=== PATIENT | female | born 1955 | race Asian ===

== ENCOUNTER 2016-12-21 17:53 | Emergency (ER) | payer OTHER ==
[~2016-12-21] VITALS: Ht 167.6 cm; Wt 74.4 kg
[~2016-12-21 17:53] MED LIST: BUT/APAP/CA2 PO; CLONIDINE0.2 MG PO; DILTIAZEM HCL PO; LABETALOL200 MG PO; MECL25TA84 PO; RYBIX ODT50 MG PO; TRAM50TA PO; VITAMIN D1000 UNIT PO
[2016-12-21 18:55] LABS: PLATELET COUNT 215 K/uL (152-353)
[2016-12-21 19:01] LABS: POTASSIUM 4.4 mmol/L (3.6-5.2)
[2016-12-21 21:37] VITALS: BP 100/67; TEMP 97.2
== END 2016-12-21 23:09 | disposition short-term general hospital (02) ==
LOC: ED 17:53
DX: R07.89 Other chest pain (principal); R06.09 Other forms of dyspnea; R94.31 Abnormal electrocardiogram [ECG] [EKG]; I20.0 Unstable angina; I48.91 Unspecified atrial fibrillation
CPT/HCPCS: 36415; 80053; 82550; 82553; 84484; 85027; 85730; 93005; 96374; 99285; J3490

== ENCOUNTER 2017-01-03 13:29 | Outpatient (CLI) | payer OTHER ==
[2017-01-03 14:01] LABS: POTASSIUM 4.8 mmol/L (3.6-5.2)
[2017-01-03 14:30] LABS: PLATELET COUNT 236 K/uL (152-353)
== END 2017-01-03 14:30 | disposition home or self-care (01) ==
LOC: LABW 13:29
PROVIDERS: Internal Medicine Nephrology
DX: I12.9 Hypertensive chronic kidney disease with stage 1 through stage 4 chronic kidney disease, or unspecified chronic kidney disease (principal); N18.3 Chronic kidney disease, stage 3 (moderate); E83.49 Other disorders of magnesium metabolism
CPT/HCPCS: 36415; 80053; 81000; 82306; 82570; 83735; 84100; 84155; 85027

== ENCOUNTER 2018-02-07 11:29 | Outpatient (CLI) | payer OTHER ==
[2018-02-07 13:00] LABS: PLATELET COUNT 317 K/uL (152-353)
[2018-02-07 13:35] LABS: POTASSIUM 4.8 mmol/L (3.6-5.2)
== END 2018-02-07 22:04 | disposition home or self-care (01) ==
LOC: LABW 11:29
PROVIDERS: Internal Medicine
DX: I10 Essential (primary) hypertension (principal); Z79.899 Other long term (current) drug therapy; Z51.81 Encounter for therapeutic drug level monitoring; R06.02 Shortness of breath
CPT/HCPCS: 36415; 80053; 80061; 81000; 84443; 84550; 85027; 87077; 87086; 87088; 87186

== ENCOUNTER 2018-08-08 11:52 | Inpatient (IN) | payer OTHER ==
[2018-08-08] VITALS (7 sets, daily range): BP systolic 83–141; BP diastolic 50–86; TEMP 97.7–98.3; Ht 167.6 cm; Wt 93.1 kg
[~2018-08-08] VITALS: Ht 167.6 cm; Wt 93.1 kg
[2018-08-08 13:33] LABS: PLATELET COUNT 242 K/uL (152-353)
[2018-08-08 15:05] LABS: POTASSIUM 5.4 mmol/L (3.6-5.2)
[2018-08-08] MEDS ORDERED: COZAAR25 MG PO (18:23)
[2018-08-08] MEDS ORDERED: TAZTIA XT120 MG PO (18:24)
[2018-08-08] MEDS ORDERED: ALLO100T22 PO (18:25)
[2018-08-08 23:39] LABS: POTASSIUM 4.1 mmol/L (3.6-5.2)
[2018-08-09] VITALS (24 sets, daily range): BP systolic 80–127; BP diastolic 51–77; TEMP 98–98.3
[2018-08-09 03:46] LABS: PLATELET COUNT 240 K/uL (152-353)
[2018-08-09 03:50] LABS: POTASSIUM 4.1 mmol/L (3.6-5.2)
[2018-08-10] VITALS (23 sets, daily range): BP systolic 100–152; BP diastolic 50–103; TEMP 98–98.6
[2018-08-10 07:47] LABS: PLATELET COUNT 199 K/uL (152-353)
[2018-08-10 08:18] LABS: POTASSIUM 4.1 mmol/L (3.6-5.2)
[2018-08-11] VITALS (14 sets, daily range): BP systolic 111–133; BP diastolic 70–90; TEMP 97.9–98.3
[2018-08-11 05:57] LABS: POTASSIUM 4.2 mmol/L (3.6-5.2)
[2018-08-12] VITALS (10 sets, daily range): BP systolic 108–133; BP diastolic 68–81; TEMP 98.1–98.4
[2018-08-12 06:20] LABS: PLATELET COUNT 180 K/uL (152-353)
[2018-08-12 06:28] LABS: POTASSIUM 4.2 mmol/L (3.6-5.2)
[2018-08-13 00:20] VITALS: BP 134/80; TEMP 97.9
[2018-08-13 04:00] VITALS: BP 150/96; TEMP 98.2
[2018-08-13 08:03] VITALS: BP 131/76; TEMP 98.1
== END 2018-08-13 10:35 | disposition home or self-care (01) | DRG 638 ==
LOC: MED/SURG 11:52 → ICU 19:16 → MED/SURG 08-12 10:20
PROVIDERS: Emergency Medicine; Family Medicine; ADMIT Internal Medicine
DX: E11.10 Type 2 diabetes mellitus with ketoacidosis without coma (principal); N17.9 Acute kidney failure, unspecified; N39.0 Urinary tract infection, site not specified; G40.802 Other epilepsy, not intractable, without status epilepticus; I69.354 Hemiplegia and hemiparesis following cerebral infarction affecting left non-dominant side; I48.91 Unspecified atrial fibrillation; E11.22 Type 2 diabetes mellitus with diabetic chronic kidney disease; I12.9 Hypertensive chronic kidney disease with stage 1 through stage 4 chronic kidney disease, or unspecified chronic kidney disease; N18.3 Chronic kidney disease, stage 3 (moderate); F12.10 Cannabis abuse, uncomplicated; B96.20 Unspecified Escherichia coli [E. coli] as the cause of diseases classified elsewhere
CPT/HCPCS: 36415; 36600; 80048; 80053; 80307; 81000; 81002; 82805; 82947; 83036; 83735; 84443; 85027; 87077; 87086; 87088; 87186; 99220; G0379; J1815

== ENCOUNTER 2019-03-17 14:16 | Outpatient (CLI) | payer OTHER ==
[~2019-03-17 14:16] MED LIST changes: +ALLO100T22 PO; +COZAAR25 MG PO; +TAZTIA XT120 MG PO
[2019-03-17 15:32] LABS: PLATELET COUNT 334 K/uL (152-353)
[2019-03-17 16:06] LABS: POTASSIUM 5.2 mmol/L (3.6-5.2)
== END 2019-03-17 23:59 ==
LOC: LAB 14:16
PROVIDERS: Physician Assistant
DX: I12.9 Hypertensive chronic kidney disease with stage 1 through stage 4 chronic kidney disease, or unspecified chronic kidney disease (principal); N18.2 Chronic kidney disease, stage 2 (mild); E11.9 Type 2 diabetes mellitus without complications
CPT/HCPCS: 80053; 83036; 83735; 84443; 85027

== ENCOUNTER 2019-11-11 11:55 | Emergency (ER) | payer OTHER ==
[~2019-11-11] VITALS: Ht 167.6 cm; Wt 84.4 kg
[2019-11-11 13:00] VITALS: BP 121/79; TEMP 97.3
== END 2019-11-11 13:00 | disposition home or self-care (01) ==
LOC: ED 11:55
DX: M10.9 Gout, unspecified (principal)
CPT/HCPCS: 96372; 99283; J1885; J2930

== ENCOUNTER 2020-01-07 07:54 | Outpatient (CLI) | payer OTHER ==
[~2020-01-07] VITALS: Ht 167.6 cm; Wt 86.2 kg
== END 2020-01-07 19:05 | disposition home or self-care (01) ==
LOC: NM 07:54
DX: I48.91 Unspecified atrial fibrillation (principal); I10 Essential (primary) hypertension; I49.5 Sick sinus syndrome; R00.2 Palpitations
CPT/HCPCS: A9500; J2785

== ENCOUNTER 2020-02-10 09:27 | Emergency (ER) | payer OTHER ==
[~2020-02-10] VITALS: Ht 167.6 cm; Wt 89.8 kg
[2020-02-10 09:36] VITALS: TEMP 97.8
[2020-02-10] MEDS ORDERED: TRESIBA FL100 UNIT/M SC (09:53)
[2020-02-10] MEDS ORDERED: PROAIR HFA INH (09:53)
[2020-02-10] MEDS ORDERED: XARELTO20 MG PO (09:54)
[2020-02-10 10:49] LABS: PLATELET COUNT 314 K/uL (152-353)
[2020-02-10 12:19] LABS: POTASSIUM 4.6 mmol/L (3.6-5.2); SODIUM 135 mmol/L (136-145)
[2020-02-10 13:00] VITALS: BP 141/91
== END 2020-02-10 13:00 | disposition home or self-care (01) ==
LOC: ED 09:27
PROVIDERS: Emergency Medicine
DX: M79.661 Pain in right lower leg (principal); K08.89 Other specified disorders of teeth and supporting structures
CPT/HCPCS: 80053; 84484; 85027; 85379; 93005; 99283

== ENCOUNTER 2020-02-13 09:43 | Emergency (ER) | payer OTHER ==
[~2020-02-13] VITALS: Ht 167.6 cm; Wt 89.8 kg
[~2020-02-13 09:43] MED LIST changes: +PROAIR HFA INH; +TRESIBA FL100 UNIT/M SC; +XARELTO20 MG PO
[2020-02-13 13:00] VITALS: BP 107/73; TEMP 98.5
== END 2020-02-13 13:00 | disposition home or self-care (01) ==
LOC: ED 09:43
DX: M10.9 Gout, unspecified (principal)
CPT/HCPCS: 99283

== ENCOUNTER 2020-05-03 09:21 | Emergency (ER) | payer OTHER ==
[~2020-05-03] VITALS: Ht 167.6 cm; Wt 89.8 kg
[2020-05-03 09:30] VITALS: BP 138/96; TEMP 98.5
[2020-05-03 10:40] LABS: PLATELET COUNT 293 K/uL (152-353)
[2020-05-03 10:49] LABS: POTASSIUM 4.7 mmol/L (3.6-5.2)
== END 2020-05-03 11:40 | disposition home or self-care (01) ==
LOC: ED 09:21
PROVIDERS: Family Medicine
DX: M10.9 Gout, unspecified (principal)
CPT/HCPCS: 80053; 84550; 85027; 96372; 99283; J1885

== ENCOUNTER 2020-12-20 10:34 | Outpatient (CLI) | payer OTHER ==
[2020-12-20 11:03] LABS: PLATELET COUNT 277 K/uL (152-353)
== END 2020-12-20 22:05 | disposition home or self-care (01) ==
LOC: LABW 10:34
PROVIDERS: ATTEND Internal Medicine
DX: Z00.00 Encounter for general adult medical examination without abnormal findings (principal); E11.9 Type 2 diabetes mellitus without complications; Z13.820 Encounter for screening for osteoporosis; E55.9 Vitamin D deficiency, unspecified; R82.998 Other abnormal findings in urine
CPT/HCPCS: 36415; 80053; 80061; 81000; 82043; 82306; 82570; 83036; 84439; 84443; 85027; 87077; 87086; 87088; 87186

== ENCOUNTER 2021-04-15 17:51 | Inpatient (IN) | payer OTHER ==
[~2021-04-15] VITALS: Ht 167.6 cm; Wt 95.7 kg
[2021-04-15 17:51] VITALS: BP 96/73; TEMP 97.9
[2021-04-15 18:39] LABS: PLATELET COUNT 207 K/uL (152-353)
[2021-04-15 18:47] LABS: POTASSIUM 5.2 mmol/L (3.6-5.2)
[2021-04-15 21:00] VITALS: BP 153/93
[2021-04-15 22:00] VITALS: BP 145/92
[2021-04-16] VITALS (8 sets, daily range): BP systolic 99–130; BP diastolic 67–80; TEMP 98.1–99.8; Ht 167.6 cm; Wt 95.7 kg
[2021-04-16 04:34] LABS: PLATELET COUNT 167 K/uL (152-353)
[2021-04-16 04:48] LABS: POTASSIUM 4.9 mmol/L (3.6-5.2)
[2021-04-16] MEDS ORDERED: COLCHICINE0.6 MG PO (07:02)
[2021-04-17 00:11] VITALS: BP 123/56; TEMP 100.9
[2021-04-17 04:00] VITALS: BP 129/91; TEMP 99.1
[2021-04-17 08:00] VITALS: BP 106/71; TEMP 97.7
[2021-04-17 09:28] LABS: PLATELET COUNT 194 K/uL (152-353)
[2021-04-17 09:43] LABS: POTASSIUM 6.3 mmol/L (3.6-5.2)
--- NOTE | 2021-04-17 09:43 | NUR ---
CRITICAL K+ 6.3 CALLED FROM LAB. NOTIFIED DR. CHAMBERS.
[2021-04-17 12:00] VITALS: BP 103/82; TEMP 98.1
[2021-04-17 15:29] LABS: POTASSIUM 6.2 mmol/L (3.6-5.2)
--- NOTE | 2021-04-17 15:32 | NUR ---
LAB CALLED WITH CRITICAL LAB, POTASSIUM IS 6.2. PHYSICIAN HAS BEEN NOTIFIED AND ORDERED FOR KAYEXALATE 60 ML ONE DOSE TO BE GIVEN.
[2021-04-17 16:00] VITALS: BP 114/61; TEMP 98.1
[2021-04-17 19:51] VITALS: BP 128/85; TEMP 97.7
[2021-04-18 00:06] VITALS: BP 119/90; TEMP 97.6
[2021-04-18 04:06] VITALS: BP 138/79; TEMP 97.7
[2021-04-18 05:36] LABS: PLATELET COUNT 230 K/uL (152-353)
[2021-04-18 05:49] LABS: POTASSIUM 3.9 mmol/L (3.6-5.2)
[2021-04-18 08:00] VITALS: BP 117/73; TEMP 97.5
[2021-04-18 12:00] VITALS: BP 123/85; TEMP 97.4
[2021-04-18] MEDS ORDERED: ASCO500T18 PO (14:07)
[2021-04-18] MEDS ORDERED: DEXAMETHASON4 MG PO (14:08)
[2021-04-18] MEDS ORDERED: AZIT250T3 PO (14:08)
--- NOTE | 2021-04-18 16:20 | NUR ---
DISCHARGE INSTRUCTIONS SIGNED AND GIVEN. IV D/C'd. Pt. EXIT VIA W/C.
== END 2021-04-18 16:20 | disposition home or self-care (01) | DRG 177 ==
LOC: ED 17:51 → MED/SURG 22:20 → UNDODEPER 04-17 23:00 → MED/SURG 04-18 16:20
PROVIDERS: ADMIT Emergency Medicine; ATTEND Internal Medicine Endocrinology, Diabetes & Metabolism
DX: U07.1 COVID-19 (principal); J12.82 Pneumonia due to coronavirus disease 2019; N17.8 Other acute kidney failure; Z86.73 Personal history of transient ischemic attack (TIA), and cerebral infarction without residual deficits; I25.10 Atherosclerotic heart disease of native coronary artery without angina pectoris; M25.551 Pain in right hip; I48.91 Unspecified atrial fibrillation; E11.22 Type 2 diabetes mellitus with diabetic chronic kidney disease; I12.9 Hypertensive chronic kidney disease with stage 1 through stage 4 chronic kidney disease, or unspecified chronic kidney disease; N18.30 Chronic kidney disease, stage 3 unspecified
CPT/HCPCS: 36415; 80048; 80053; 81000; 85027; 87635; 96365; 99284; J0456; J1100; J1815; J2270; J2405; U0003

== ENCOUNTER 2021-04-23 18:26 | Inpatient (IN) | payer OTHER ==
[2021-04-23] VITALS (9 sets, daily range): BP systolic 124–158; BP diastolic 84–114; TEMP 97–99.6
[~2021-04-23] VITALS: Ht 165.1 cm; Wt 101.7 kg
[~2021-04-23 18:26] MED LIST changes: +ASCO500T18 PO; +AZIT250T3 PO; +COLCHICINE0.6 MG PO; +DEXAMETHASON4 MG PO
[2021-04-23 19:04] LABS: POTASSIUM 5.8 mmol/L (3.6-5.2)
[2021-04-23 19:08] LABS: PLATELET COUNT 304 K/uL (152-353)
[2021-04-23 20:08] LABS: PARTIAL THROMBOPLASTIN TIME 22.2 SECONDS (24.5-33.6)
[2021-04-24] VITALS (19 sets, daily range): BP systolic 123–179; BP diastolic 87–125; TEMP 98.2–101; Ht 165.1 cm; Wt 101.7 kg
[2021-04-24 03:56] LABS: POTASSIUM 4.8 mmol/L (3.6-5.2)
[2021-04-24 07:09] LABS: PLATELET COUNT 264 K/uL (152-353)
[2021-04-24 07:27] LABS: POTASSIUM 4.9 mmol/L (3.6-5.2)
[2021-04-24 11:43] LABS: POTASSIUM 5.4 mmol/L (3.6-5.2)
[2021-04-24 15:15] LABS: POTASSIUM 4.4 mmol/L (3.6-5.2)
[2021-04-24 21:38] LABS: POTASSIUM 5.4 mmol/L (3.6-5.2)
[2021-04-25] VITALS (11 sets, daily range): BP systolic 122–146; BP diastolic 82–94; TEMP 98.3–99.9
[2021-04-25 07:42] LABS: POTASSIUM 4.9 mmol/L (3.6-5.2)
[2021-04-25 08:11] LABS: PLATELET COUNT 192 K/uL (152-353)
[2021-04-25 14:55] LABS: POTASSIUM 4.8 mmol/L (3.6-5.2)
[2021-04-26] VITALS (12 sets, daily range): BP systolic 100–137; BP diastolic 53–88; TEMP 97.6–98.6
[2021-04-26 07:24] LABS: PLATELET COUNT 210 K/uL (152-353)
[2021-04-26 07:42] LABS: POTASSIUM 4.6 mmol/L (3.6-5.2)
[2021-04-27] VITALS (11 sets, daily range): BP systolic 109–163; BP diastolic 73–95; TEMP 98.1–100
[2021-04-27 07:45] LABS: POTASSIUM 5.2 mmol/L (3.6-5.2)
[2021-04-27 08:25] LABS: PLATELET COUNT 47 K/uL (152-353)
[2021-04-28] VITALS: BP 142/88
[2021-04-28 03:00] VITALS: BP 151/105
[2021-04-28 05:15] LABS: POTASSIUM 4.7 mmol/L (3.6-5.2)
[2021-04-28 07:20] LABS: PLATELET COUNT 196 K/uL (152-353)
[2021-04-28 20:00] VITALS: BP 136/90; TEMP 98
[2021-04-29 00:02] VITALS: BP 137/90; TEMP 98.1
[2021-04-29 20:00] VITALS: BP 126/81; TEMP 97.8
[2021-04-30 00:18] VITALS: BP 126/84; TEMP 98.1
[2021-04-30 04:26] VITALS: BP 132/76; TEMP 97.3
[2021-04-30 08:00] VITALS: BP 158/76; TEMP 97.6
[2021-04-30 12:00] VITALS: BP 107/65; TEMP 97.8
[2021-04-30 16:00] VITALS: BP 102/67; TEMP 97.8
[2021-04-30 20:00] VITALS: BP 113/67; TEMP 98.2
[2021-05-01] VITALS: BP 111/73; TEMP 98.6
[2021-05-01 04:00] VITALS: BP 137/84; TEMP 98.3
[2021-05-01 08:00] VITALS: BP 144/79; TEMP 98.8
[2021-05-01 12:00] VITALS: BP 118/58; TEMP 97.3
[2021-05-01 16:00] VITALS: BP 116/53; TEMP 97.8
[2021-05-01 20:14] VITALS: BP 115/61; TEMP 98.5
[2021-05-02] VITALS: BP 136/78; TEMP 98.1
[2021-05-02 04:00] VITALS: BP 120/58; TEMP 98.5
[2021-05-02 08:00] VITALS: BP 146/82; TEMP 98
[2021-05-02 12:00] VITALS: BP 145/87; TEMP 98.2
[2021-05-02 16:00] VITALS: BP 133/73; TEMP 98.2
[2021-05-02 20:24] VITALS: BP 131/69; TEMP 98.6
[2021-05-03 00:20] VITALS: BP 134/99; TEMP 98.5
[2021-05-03 04:29] VITALS: BP 130/86; TEMP 98.4
[2021-05-03 08:00] VITALS: BP 147/84; TEMP 98.5
== END 2021-05-03 13:35 | disposition swing bed (61) | DRG 177 ==
LOC: ED 18:26 → ICU 20:00 → PCU 04-26 17:07 → MED/SURG 04-29 15:07
PROVIDERS: Internal Medicine; ADMIT Hospitalist; ATTEND Internal Medicine Endocrinology, Diabetes & Metabolism
DX: U07.1 COVID-19 (principal); E11.10 Type 2 diabetes mellitus with ketoacidosis without coma; J12.82 Pneumonia due to coronavirus disease 2019; J96.01 Acute respiratory failure with hypoxia; K85.90 Acute pancreatitis without necrosis or infection, unspecified; I21.4 Non-ST elevation (NSTEMI) myocardial infarction; E87.0 Hyperosmolality and hypernatremia; N18.4 Chronic kidney disease, stage 4 (severe); N17.8 Other acute kidney failure; E78.49 Other hyperlipidemia; E11.22 Type 2 diabetes mellitus with diabetic chronic kidney disease; I12.9 Hypertensive chronic kidney disease with stage 1 through stage 4 chronic kidney disease, or unspecified chronic kidney disease; E87.8 Other disorders of electrolyte and fluid balance, not elsewhere classified; M62.81 Muscle weakness (generalized); Z74.1 Need for assistance with personal care; R26.2 Difficulty in walking, not elsewhere classified; R13.12 Dysphagia, oropharyngeal phase
CPT/HCPCS: 36415; 36600; 51702; 80048; 80053; 80320; 81000; 81002; 82550; 82805; 82947; 83036; 83690; 83735; 83880; 84100; 84484; 85027; 85610; 85730; 87040; 87077; 87086; 87088; 87185; 87635; 93005; 94760; 96360; 96361; 96365; 96375; 96376; 99285; J0360; J1650; J1815; J1940; J1956; J2060; J2270; J2405; J3490; U0003

== ENCOUNTER 2021-05-03 13:38 | Inpatient (IN) | payer OTHER ==
[~2021-05-03] VITALS: Ht 160 cm; Wt 92.7 kg
[2021-05-03 18:34] VITALS: BP 107/74; TEMP 98.3; Ht 160 cm; Wt 92.7 kg
[2021-05-03 21:13] VITALS: BP 144/79; TEMP 98
[2021-05-04 08:00] VITALS: BP 116/57; TEMP 98.3
[2021-05-04 20:00] VITALS: BP 123/78; TEMP 98.5
[2021-05-05 08:00] VITALS: BP 136/53; TEMP 97.8
[2021-05-05 20:29] VITALS: BP 123/72; TEMP 97.2
[2021-05-06 08:00] VITALS: BP 147/90; TEMP 98.4
[2021-05-06 20:18] VITALS: BP 114/70; TEMP 98.7
[2021-05-07 20:16] VITALS: BP 135/81; TEMP 98.4
[2021-05-08 08:00] VITALS: BP 146/86; TEMP 98.5
[2021-05-08 20:00] VITALS: BP 142/83; TEMP 97.7
[2021-05-09 08:00] VITALS: BP 127/76; TEMP 98.9
[2021-05-09 20:26] VITALS: BP 113/79; TEMP 97.6
[2021-05-10 08:00] VITALS: BP 156/89; TEMP 98.3
[2021-05-10 20:00] VITALS: BP 128/95; TEMP 98.6
[2021-05-11 08:00] VITALS: BP 130/77; TEMP 98.4
[2021-05-11 20:00] VITALS: BP 138/73; TEMP 98.3
[2021-05-12 08:00] VITALS: BP 155/95; TEMP 97.9
[2021-05-12 20:25] VITALS: BP 134/76; TEMP 98.6
[2021-05-13 08:00] VITALS: BP 140/96; TEMP 97.9
[2021-05-13 20:00] VITALS: BP 128/64; TEMP 98.2
[2021-05-14 08:13] VITALS: BP 143/72; TEMP 98.3
[2021-05-14 20:00] VITALS: BP 136/79; TEMP 98.3
[2021-05-15 08:00] VITALS: BP 149/91; TEMP 99.2
[2021-05-15 19:48] VITALS: BP 134/86; TEMP 98
[2021-05-16 08:00] VITALS: BP 149/90; TEMP 98.2
[2021-05-16 20:19] VITALS: BP 122/72; TEMP 98.1
[2021-05-17 08:00] VITALS: BP 143/78; TEMP 97.9
[2021-05-17 20:00] VITALS: BP 125/71; TEMP 98.1
[2021-05-18 08:00] VITALS: BP 133/87; TEMP 98.3
[2021-05-18 20:00] VITALS: BP 123/80; TEMP 98.1
[2021-05-19 08:00] VITALS: BP 130/90; TEMP 98.5
[2021-05-19 20:24] VITALS: BP 144/90; TEMP 98.5
[2021-05-20 08:00] VITALS: BP 132/98; TEMP 98.6
== END 2021-05-20 12:55 | disposition home health service (06) | DRG 177 ==
LOC: MED/SURG 13:38
PROVIDERS: ADMIT Internal Medicine Endocrinology, Diabetes & Metabolism; ATTEND Internal Medicine Endocrinology, Diabetes & Metabolism
DX: U07.1 COVID-19 (principal); J12.82 Pneumonia due to coronavirus disease 2019; J69.0 Pneumonitis due to inhalation of food and vomit; I21.4 Non-ST elevation (NSTEMI) myocardial infarction; E11.22 Type 2 diabetes mellitus with diabetic chronic kidney disease; R26.81 Unsteadiness on feet; Z74.1 Need for assistance with personal care; M62.81 Muscle weakness (generalized); R47.1 Dysarthria and anarthria; R13.12 Dysphagia, oropharyngeal phase; N17.9 Acute kidney failure, unspecified; N18.4 Chronic kidney disease, stage 4 (severe); Z91.81 History of falling; I12.9 Hypertensive chronic kidney disease with stage 1 through stage 4 chronic kidney disease, or unspecified chronic kidney disease
CPT/HCPCS: 87081; J1885

== ENCOUNTER 2021-06-05 09:40 | Outpatient (CLI) | payer OTHER ==
[2021-06-05 10:17] LABS: PLATELET COUNT 320 K/uL (152-353)
[2021-06-05 10:38] LABS: POTASSIUM 4.2 mmol/L (3.6-5.2)
== END 2021-06-05 20:03 | disposition home or self-care (01) ==
LOC: LABW 09:40
PROVIDERS: ATTEND Internal Medicine
DX: E11.9 Type 2 diabetes mellitus without complications (principal); E79.0 Hyperuricemia without signs of inflammatory arthritis and tophaceous disease; I48.91 Unspecified atrial fibrillation
CPT/HCPCS: 36415; 80053; 80061; 83036; 84439; 84443; 84550; 85027

== ENCOUNTER 2021-12-12 10:55 | Emergency (ER) | payer OTHER | END 2021-12-12 13:15 | disposition home or self-care (01) | LOC: ED 10:55 | DX: L30.4 Erythema intertrigo (principal) | CPT/HCPCS: 99282 ==

== ENCOUNTER 2022-01-02 11:34 | Observation (INO) | payer OTHER ==
[2022-01-02] VITALS (10 sets, daily range): BP systolic 106–153; BP diastolic 70–107; TEMP 96.9–98; Ht 167.6 cm; Wt 104.9 kg
[~2022-01-02] VITALS: Ht 167.6 cm; Wt 104.9 kg
[2022-01-02 12:21] LABS: PLATELET COUNT 239 K/uL (152-353)
[2022-01-02 12:29] LABS: POTASSIUM 4.5 mmol/L (3.6-5.2)
[2022-01-02 12:38] LABS: PARTIAL THROMBOPLASTIN TIME 26.3 SECONDS (24.5-33.6)
[2022-01-02] MEDS ORDERED: AMIODARONE HYD200 MG PO (21:19)
[2022-01-02] MEDS ORDERED: CARV3.12 PO (21:21)
[2022-01-02] MEDS ORDERED: NYAMYC100000 UNI EX (21:22)
[2022-01-03 03:46] VITALS: BP 116/80; TEMP 98.5
[2022-01-03 08:04] VITALS: BP 131/78; TEMP 98.1
[2022-01-03] MEDS ORDERED: PULMICORT180 MCG/AC INH (09:15)
[2022-01-03 09:20] LABS: PLATELET COUNT 207 K/uL (152-353); POTASSIUM 4.8 mmol/L (3.6-5.2)
== END 2022-01-03 11:47 | disposition home or self-care (01) ==
LOC: ED 11:34 → MED/SURG 15:00
PROVIDERS: Emergency Medicine; Internal Medicine; ADMIT Internal Medicine; ATTEND Internal Medicine
DX: R07.89 Other chest pain (principal); I48.91 Unspecified atrial fibrillation; I10 Essential (primary) hypertension; N18.9 Chronic kidney disease, unspecified
CPT/HCPCS: 80053; 82948; 83880; 84484; 85027; 85379; 85610; 85730; 87635; 93005; 96360; 96361; 96374; 96375; 99220; 99284; G0378; J1170; J1650; J2405; U0003

== ENCOUNTER 2022-01-15 09:30 | Outpatient (CLI) | payer OTHER ==
[~2022-01-15 09:30] MED LIST changes: +AMIODARONE HYD200 MG PO; +CARV3.12 PO; +NYAMYC100000 UNI EX; +PULMICORT180 MCG/AC INH
[2022-01-15 10:00] LABS: PLATELET COUNT 261 K/uL (152-353)
[2022-01-15 10:05] LABS: POTASSIUM 4.3 mmol/L (3.6-5.2)
== END 2022-01-15 18:46 | disposition home or self-care (01) ==
LOC: LABW 09:30
PROVIDERS: ATTEND Internal Medicine Cardiovascular Disease
DX: I10 Essential (primary) hypertension (principal); I25.10 Atherosclerotic heart disease of native coronary artery without angina pectoris
CPT/HCPCS: 36415; 80048; 85027

== ENCOUNTER 2022-06-09 15:43 | Emergency (ER) | payer OTHER ==
[~2022-06-09] VITALS: Ht 167.6 cm; Wt 104.8 kg
[2022-06-09 17:01] LABS: PLATELET COUNT 199 K/uL (152-353)
[2022-06-09 17:21] LABS: POTASSIUM 6.1 mmol/L (3.6-5.2)
[2022-06-09 22:00] VITALS: BP 124/83; TEMP 97.8
== END 2022-06-09 22:00 | disposition short-term general hospital (02) ==
LOC: ED 15:43
PROVIDERS: Emergency Medicine
DX: E11.65 Type 2 diabetes mellitus with hyperglycemia (principal); Z79.84 Long term (current) use of oral hypoglycemic drugs; N17.8 Other acute kidney failure; E87.5 Hyperkalemia; Z11.52 Encounter for screening for COVID-19
CPT/HCPCS: 36415; 36600; 80048; 80076; 82805; 82947; 84484; 85027; 87502; 87635; 93005; 96360; 96361; 96365; 96366; 96375; 96376; 99284; J1815; U0003

== ENCOUNTER 2022-06-18 11:12 | Outpatient (CLI) | payer OTHER | END 2022-06-18 20:28 | disposition home or self-care (01) | LOC: RAD 11:12 | PROVIDERS: ATTEND Internal Medicine | DX: M25.562 Pain in left knee (principal) ==

== ENCOUNTER 2022-09-07 09:56 | Outpatient (CLI) | payer OTHER ==
[2022-09-07 10:18] LABS: PLATELET COUNT 289 K/uL (152-353)
[2022-09-07 10:56] LABS: POTASSIUM 4.4 mmol/L (3.6-5.2)
== END 2022-09-07 19:23 | disposition home or self-care (01) ==
LOC: LAB 09:56
PROVIDERS: ATTEND Internal Medicine
DX: E11.9 Type 2 diabetes mellitus without complications (principal); I10 Essential (primary) hypertension; I48.91 Unspecified atrial fibrillation; R82.998 Other abnormal findings in urine
CPT/HCPCS: 80053; 80061; 81000; 83036; 84439; 84443; 85027; 87086; 87088

== ENCOUNTER 2023-08-26 11:01 | Outpatient (CLI) | payer OTHER ==
[2023-08-26 11:41] LABS: PLATELET COUNT 373 K/uL (152-353)
[2023-08-26 12:00] LABS: POTASSIUM 4.6 mmol/L (3.6-5.2)
== END 2023-08-26 19:41 | disposition home or self-care (01) ==
LOC: LAB 11:01
PROVIDERS: ATTEND Internal Medicine
DX: E11.22 Type 2 diabetes mellitus with diabetic chronic kidney disease (principal); I12.9 Hypertensive chronic kidney disease with stage 1 through stage 4 chronic kidney disease, or unspecified chronic kidney disease; I48.91 Unspecified atrial fibrillation; K92.2 Gastrointestinal hemorrhage, unspecified; E79.0 Hyperuricemia without signs of inflammatory arthritis and tophaceous disease; N18.9 Chronic kidney disease, unspecified
CPT/HCPCS: 80053; 83036; 84439; 84443; 84550; 85027